=== PATIENT | male | born 1985 | race Caucasian/White ===

== ENCOUNTER 2017-04-17 09:32 | Emergency (ER) | payer BC ==
[2017-04-17 09:57] VITALS: BP 125/68
--- NOTE | 2017-04-17 10:59 | UC ---
Ear Complaint HPI - HPI Summary HPI Summary: complaint of left ear pain that started this morning headache that starts in his ear ad n radiates into his entire head throbbing aching pain tried acetaminophen without relief nasal congestion and productive cough for over a week mild sore throat denies fever and chills - History of Current Complaint Chief Complaint: UCEar Stated Complaint: EAR PAIN Time Seen by Provider: 04/17/17 10:50 Hx Obtained From: Patient - Allergies/Home Medications Allergies/Adverse Reactions: Allergies Allergy/AdvReac Type Severity Reaction Status Date / Time Sulfa Antibiotics Allergy unk Verified 04/17/17 09:51 Home Medications: Home Medications FLUoxetine CAP* [PROzac CAP*] 40 mg PO DAILY 04/17/17 [History Confirmed ] Levetiracetam XR TAB(NF) [Keppra XR TAB(NF)] 1,500 mg PO BID 04/17/17 [History Confirmed 04/17/17] PMH/Surg Hx/FS Hx/Imm Hx Previously Healthy: Yes Endocrine History Of: Denies: Diabetes, Thyroid Disease Cardiovascular History Of: Denies: Cardiac Disorders, Hypertension Respiratory History Of: Denies: COPD, Asthma GI/ History Of: Denies: Ulcer - Surgical History Surgical History: None - Family History Known Family History: Negative: Cardiac Disease, Hypertension, Diabetes - Social History Occupation: Employed Full-time Lives: With Family Alcohol Use: None Substance Use Type: None Smoking Status (MU): Former Smoker Review of Systems Constitutional: Negative Skin: Negative Eyes: Negative ENT: Sore Throat, Ear Ache, Nasal Discharge Respiratory: Cough Cardiovascular: Negative Gastrointestinal: Negative Genitourinary: Negative Motor: Negative Neurovascular: Negative Musculoskeletal: Negative Neurological: Headache Psychological: Negative All Other Systems Reviewed And Are Negative: Yes Physical Exam Triage Information Reviewed: Yes Appearance: Well-Nourished, Pain Distress Vital Signs: Initial Vital Signs Temp 98 F 04/17/17 09:54 Pulse 64 04/17/17 09:54 Resp 18 04/17/17 09:54 BP 125/68 04/17/17 09:54 Pulse Ox 99 04/17/17 09:54 Vital Signs Reviewed: Yes Eyes: Positive: Conjunctiva Clear ENT: Positive: Pharyngeal erythema, Nasal congestion, Nasal drainage, TM bulging , TM red, Tonsillar swelling, Tonsillar exudate Neck: Positive: No Lymphadenopathy Respiratory: Positive: Lungs clear, Normal breath sounds, No respiratory distress Cardiovascular: Positive: RRR, No Murmur, Pulses Normal Abdomen Description: Positive: Nontender, Soft Bowel Sounds: Positive: Present Musculoskeletal: Positive: No Edema Neurological: Positive: Alert Psychological Exam: Normal Skin Exam: Normal Ear Complaint Course/Dx - Differential Dx/Diagnosis Differential Diagnosis/HQI/PQRI: Otitis Media, URI, Other - sinusitis Provider Diagnoses: left otitis media, sinusitis Discharge - Discharge Plan Condition: Stable Disposition: HOME Prescriptions: Amoxicillin/Clavulanate TAB* [Augmentin TAB 875*] 875 mg PO BID #20 tab Ibuprofen TAB* [Motrin TAB* 800 MG] 800 mg PO Q8H #30 tab Patient Education Materials: Sinusitis (ED), Otitis Media (ED) Forms: *Work Release Referrals: Pedro Luis Chiang MD [Primary Care Provider] - Additional Instructions: Please start antibiotic as directed Increase fluids and rest Take acetaminophen or ibuprofen for fever or pain Please review your discharge instructions. If your symptoms do not improve please call your primary care provider or return to urgent care. Your blood pressure is pre-hypertensive reading. Please contact your primary care provider within 1 day -4 weeks for further evaluation
[2017-04-17] MEDS ORDERED: HYDROcodone/ACETAMIN 5-325 MG* 1 TAB PO ONE (11:03)
== END 2017-04-17 11:12 | disposition home or self-care (01) ==
LOC: UCEAST 09:32
DX: H66.92 Otitis media, unspecified, left ear (principal); J32.9 Chronic sinusitis, unspecified; Z88.2 Allergy status to sulfonamides; Z87.891 Personal history of nicotine dependence
CPT/HCPCS: 99212; G0463

== ENCOUNTER 2018-06-29 10:40 | Emergency (ER) | payer BC ==
--- OUTSIDE RECORDS SUMMARY | 2018-06-29 10:45 | XMS REPORT ---
:1985 External Reference #:[id number] Author Organization [id number] Address [address] [place] [address] Phone [phone] Care Team Providers Name Role Phone Pedro Luis Chiang MD Primary Care Physician Unavailable Payers Type Date Identification Numbers Payment Provider Subscriber Commercial Effective: Policy Number: BS Facets Nato Godoy 2016 [id number] PayID: [id number] [address] [address] [place]IG[place] thompson [address] Medigap Part B Effective: 2015 Policy Number: [employer] Facets Nato Godoy [id number] Expires: 2016 PayID: [id number] [address] [address] JIGNA Jones [address] Medigap Part B Expires: 2014 Policy Number: BS Facets Nato Godoy [id number] PayID: [id number] [address] [address] [place] [address] Medigap Part B Expires: 2013 Policy Number: [employer] Nato Godoy [id number] Group Number: [id number] [address] PayID: [id number] KONRAD Alvarez [id number] Problems Date Description Provider Status Onset: 08/25/2009 Epilepsy, not refractory Pedro Luis Chiang, Active MRita,FACP Onset: 06/10/2010 Severe recurrent major Pedro Luis Chiang, 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.Tonja,FACP features Onset: 06/10/2010 Kidney stone Jay Finley M.D.,FACP Onset: 04/20/2017 Ex-smoker Pedro Luis Chiang Active Mary Kate,FACP Onset: 06/10/2010 Syncope and collapse Cm Finley M.D.,FACP Inactive: 02/21/2014 Onset: 02/21/2014 Generalized-onset seizures Pedro Luis Chiang M.D.,FACP Inactive Inactive: 02/24/2015 Onset: 02/21/2014 Generalized convulsive Pedro Luis Chiang M.D.,FACP Inactive epilepsy Inactive: 02/24/2015 Onset: 01/07/2008 Tobacco user Pedro Luis Chiang M.D.,FACP Inactive Inactive: 04/20/2017 Family History Date Family Member(s) Problem(s) Comments Father Diabetes, Insulin Dependent type 2 Siblings 1 Maternal Grandfather Alcoholism Maternal Grandfather Alzheimer's Disease Maternal Grandmother Cancer cholangiocarcinoma Social History Type Date Description Comments Marital Status Single Lives With Mother And Father Occupation Currently Working childcare Work Status Work W/Restrictions will start once license reinstated. Cigarette Use Former Cigarette Smoker ETOH Use 01/23/2018 Denies alcohol use Recreational Drug Use Denies Drug Use Smoking Patient is a former smoker Quit Dec 2014 Exercise Type/Frequency Exercises sporadically Allergies, Adverse Reactions, Alerts Date Description Reaction Status Severity Comments 01/07/2008 Sulfa active Medications Medication Date Status Form Strength Qnty SIG Indications Ordering Provider Azithromycin 06/22 Active Tablets 500mg 2tabs Take 2 R30.0 Fabienne tablets by Cotton, mouth M.D. once. Cefixime 06/22 Active Suspension 200mg/5ML 50ml Take 10 mL R30.0 Rec by mouth Cotton, once. M.D. Prednisone 01/23 Active Tablets 20mg 8tabs 2 tab by J20.9 mouth 4 D. Mariia, days M.D.,FACYenifer Fluoxetine HCL 01/08 Active Capsules 40mg 30cap 1 tab F33.2 s daily Tonja Chiang M.D.,FACP Keppra XR 12/24 Active Tablets ER 500mg 540ta 3 tabs by G40.409 24HR bs mouth Tonja Chiang, twice a M.D.,FACP day Vitamin D Active Capsules 400Unit 1 by mouth Unknown (Cholecalciferol / every day ) fall/winte r Mucinex Active Tablets ER 600mg twice a Unknown /0000 12HR day as needed Vitamin C Active Capsules 500mg 1 by mouth Unknown every day Dicyclomine HCL Active Capsules 10mg 2-3 times Unknown /0000 a day Nifedipine ER Active Tablets ER 30mg 1 by mouth Unknown 24HR every day Breo Ellipta 01/23 Hx Aerosol 100-25mcg 90uni inhale 1 /Inh ts puff by Tonja Chiang, - mouth M.D.,FACP 06/22 Pantoprazole 01/[address] 40mg 30tab 1 in the s morning Pachikara, - empty M.D. 01/23 Vitamin 01/15 Hx Tablets ER 500mg 60tab 1 tab by s mouth once Pachikara, - day M.D. 01/23 Prednisone 01/15 Hx Tablets 20mg 10tab 2 tab by J20.9 s mouth 5 Pachikara, - days M.D. 01/23 Lamotrigine 09/29 Hx Tablets 25mg 120ta ( Not G40.409 bs Taking Cowdery, - )take 1 by M.D. 01/23 mouth at bedtime x 2 weeks, then 2 by mouth at bedtime x 2 weeks, then 4 by mouth at bedtime. Ciprodex 04/20 Hx Suspension 0.3-0.1% 7.500 instill 4 ml drops into Tonja Chiang, - left ear 2 M.D.,FACP 09/28 times day for 7 days Cyclobenzaprine 07/19 Hx Tablets 5mg 30tab take 1 G44.201 [place]onte HCL s tablet by PROSPER Garcia - mouth up 09/28 to three times a day as needed for tension Leyva Tylenol Extra 07/19 Hx Tablets 500mg 45tab 2 tablets G44.201 [place] Strength /2015 s by mouth PROSPER Garcia - every 6 09/28 hours up to three time a day as needed for Leyva Amoxicillin 10/13 Hx Tablets 500mg 14tab 1 tab by J02.9 s mouth Padmaja [employer]ER - twice a 02/01 day 7 days Cheratussin ac 10/13 Hx Solution 100-10mg/ 180ml 5-10 J06.9 5ML milliliter PROSPER Giang - s by mouth 02/01 four times a day as needed Clarithromycin 01/05 Hx Tablets 500mg 14tab 1 by mouth 466.0 s twice a Tonja Chaing, - day for 7 M.D.,[facility] Ventolin HFA 01/05 Hx Aerosol 108(90Bas 1unit 2 puffs by 466.0 e) s mouth four DMian Chiang, - mcg/Act times a MMianDMian,[facility] 02/01 day needed Amoxicillin 02/15 Hx Capsules 500mg 30cap 1 tid for Jaspal . s 10 days Tim Puente M.D. 02/21 Keppra 08/26 Hx Tablets 500mg 1 tablet po qam and Tonja Chiang, - 2 tablets Christie.DMian,[facility] 09/04 po qpm /2008 Zyprexa 08/25 Hx Tablets 5mg 30tab 1 po qhs 296.33 s samples Tim Victoria M.D.,[facility] 02/21 Indomethacin 02/17 Hx Capsules 25mg 20cap po bid for 592.0 s 2 days Tonja Chiang, - then prn Mary Kate,[facility] 02/21 Lamictal 10/17 Hx Tablets 25mg 30tab 1 PO qPM Tim Urias M.D.,[facility] 11/06 Florinef 10/14 Hx Tablets 0.1mg 60tab po bid 345.80 Tim Urias M.D.,[facility] 08/25 Fluoxetine HCL 01/07 Hx Capsules 40mg 90cap 1 by mouth s every day PROSPER Giang - 01/08 Amoxicillin 01/07 Hx Capsules 500mg 40cap 2 bid for 461.9 s 10 days Tim Victoria M.D.,FACP 06/23 Keppra Hx Tablets 500mg 2 tabs po Pedro Luis bid Tim Victoria M.D.,FACP 08/26 Keppra XR Hx Tablets ER 750mg 2 po bid 24HR - 12/24 Multivitamins Hx Tablets 90tab 1 po qd Unknown / s - 07/23 Klonopin Hx Tablets 0.5mg 180ta 1 tab po Tamiko /0000 bs bid prn Cowderlaly, - seizure Mary Kate 02/21 (Code: C) Propranolol HCL Hx Tablets 10mg 1 by mouth Unknown twice - every day 07/19 Buspirone HCL Hx Tablets 5mg 1 by mouth F33.2 twice a - day 09/28 Ventolin HFA Hx Aerosol 108(90Bas 8gm 2 puffs 4 Obed /0000 e) times Pachikara, - mcg/Act daily/use M.D. 06/22 Expectorant Hx as needed / - 01/23 Medications Administered in Office Medication Date Status Form Strength Qnty SIG Indications Ordering Provider PPD Administered Injection Demarco Giang, 5 F[employer]ITURE [employer] PPD Administered Injection Pedro Luis Evangelista 4 Mary Kate Chiang,FACP PPD Administered Injection Nurse Visit 2 [place] PPD Administered Injection Obed 0 Mary Kate Toscano PPD Administered Injection Pedro Luis Evangelista 9 Mary Kate Chiang,FAC Immunizations CPT Code Status Date Vaccine Lot # [id number] Given 11/20/2009 Tetanus And Diptheria (Td) For Adult Use Preservative Free Vital Signs Date Vital Result Comment 06/22/2018 Weight 134.75 lb Heart Rate 63 /min BP Systolic 113 mmHg BP Diastolic 70 mmHg Body Temperature 96.0 F O2 % BldC Oximetry 97 % 01/23/2018 Weight 148.00 lb Heart Rate 74 /min BP Systolic Sitting 100 mmHg BP Diastolic Sitting 60 mmHg Body Temperature 96.5 F O2 % BldC Oximetry 97 % 01/15/2018 Height 67 inches 5'7" Weight 143.00 lb Heart Rate 75 /min BP Systolic 98 mmHg BP Diastolic 60 mmHg Body Temperature 98.0 F O2 % BldC Oximetry 97 % BMI (Body Mass Index) 22.4 kg/m2 09/29/2017 Height 67 inches 5'7" Weight 143.00 lb Heart Rate 88 /min BP Systolic Sitting 126 mmHg BP Diastolic Sitting 60 mmHg Respiratory Rate 16 /min BMI (Body Mass Index) 22.4 kg/m2 04/20/2017 Weight 144.12 lb Heart Rate 54 /min BP Systolic Sitting 116 mmHg BP Diastolic Sitting 74 mmHg Body Temperature 96.7 F O2 % BldC Oximetry 98 % 07/19/2016 Height 66.5 inches 5'6.50" Weight 141.00 lb Heart Rate 58 /min BP Systolic Sitting 116 mmHg BP Diastolic Sitting 70 mmHg O2 % BldC Oximetry 97 % BMI (Body Mass Index) 22.4 kg/m2 02/03/2016 Height 67 inches 5'7" Weight 146.00 lb Heart Rate 56 /min BP Systolic Sitting 126 mmHg BP Diastolic Sitting 80 mmHg Respiratory Rate 16 /min BMI (Body Mass Index) 22.9 kg/m2 10/13/2015 Weight 148.00 lb Heart Rate 60 /min BP Systolic Sitting 118 mmHg BP Diastolic Sitting 76 mmHg Body Temperature 98.7 F O2 % BldC Oximetry 96 % 08/05/2015 Height 67 inches 5'7" Heart Rate 56 /min BP Systolic Sitting 118 mmHg BP Diastolic Sitting 68 mmHg Respiratory Rate 16 /min 07/23/2015 Height 67 inches 5'7" Weight 143.50 lb Heart Rate 54 /min BP Systolic Sitting 122 mmHg BP Diastolic Sitting 70 mmHg Body Temperature 97.0 F O2 % BldC Oximetry 98 % BMI (Body Mass Index) 22.5 kg/m2 05/14/2015 Height 67 inches 5'7" Weight 138.25 lb Heart Rate 55 /min BP Systolic Sitting 112 mmHg BP Diastolic Sitting 64 mmHg O2 % BldC Oximetry 98 % BMI (Body Mass Index) 21.7 kg/m2 02/02/2015 Height 67.25 inches 5'7.25" Weight 139.00 lb Heart Rate 56 /min BP Systolic Sitting 126 mmHg BP Diastolic Sitting 74 mmHg Respiratory Rate 16 /min BMI (Body Mass Index) 21.6 kg/m2 01/05/2015 Height 67.25 inches 5'7.25" Weight 141.50 lb Heart Rate 64 /min BP Systolic Sitting 116 mmHg BP Diastolic Sitting 68 mmHg Body Temperature 97.6 F O2 % BldC Oximetry 98 % BMI (Body Mass Index) 22.0 kg/m2 02/21/2014 Height 67.25 inches 5'7.25" Weight 135.75 lb Heart Rate 64 /min BP Systolic Sitting 104 mmHg BP Diastolic Sitting 58 mmHg Body Temperature 97.4 F BMI (Body Mass Index) 21.1 kg/m2 01/15/2014 Heart Rate 68 /min BP Systolic Sitting 130 mmHg BP Diastolic Sitting 70 mmHg Respiratory Rate 16 /min 06/07/2013 Height 67 inches 5'7" Weight 150.00 lb Heart Rate 56 /min BP Systolic Sitting 110 mmHg BP Diastolic Sitting 62 mmHg Respiratory Rate 8 /min BMI (Body Mass Index) 23.5 kg/m2 04/24/2013 Heart Rate 72 /min BP Systolic Sitting 112 mmHg BP Diastolic Sitting 60 mmHg Respiratory Rate 12 /min 03/06/2013 Heart Rate 66 /min BP Systolic Sitting 116 mmHg BP Diastolic Sitting 64 mmHg Respiratory Rate 14 /min 02/15/2011 Weight 165.00 lb Heart Rate 60 /min BP Systolic Sitting 122 mmHg BP Diastolic Sitting 72 mmHg Body Temperature 96.8 F tympanic 08/18/2010 Weight 158.00 lb Heart Rate 68 /min BP Systolic Sitting 122 mmHg BP Diastolic Sitting 80 mmHg 06/10/2010 Weight 158.00 lb Heart Rate 70 /min BP Systolic Sitting 110 mmHg BP Diastolic Sitting 70 mmHg 09/08/2009 Weight 146.00 lb Heart Rate 82 /min BP Systolic Sitting 122 mmHg BP Diastolic Sitting 72 mmHg 08/25/2009 Weight 137.00 lb With winter coat on Heart Rate 62 /min BP Systolic Sitting 104 mmHg BP Diastolic Sitting 54 mmHg 02/17/2009 Weight 138.00 lb Heart Rate 60 /min BP Systolic Sitting 124 mmHg BP Diastolic Sitting 60 mmHg 11/06/2008 Height 67 inches 5'7" Weight 130.00 lb Heart Rate 60 /min BP Systolic Sitting 110 mmHg BP Diastolic Sitting 58 mmHg BMI (Body Mass Index) 20.4 kg/m2 10/14/2008 Height 67 inches 5'7" Weight 130.00 lb Heart Rate 60 /min BP Systolic Sitting 116 mmHg BP Diastolic Sitting 60 mmHg BMI (Body Mass Index) 20.4 kg/m2 09/09/2008 Height 67 inches 5'7" Weight 130.00 lb Heart Rate 62 /min BP Systolic Sitting 116 mmHg BP Diastolic Sitting 60 mmHg BMI (Body Mass Index) 20.4 kg/m2 06/23/2008 Height 67 inches 5'7" Weight 134.00 lb Heart Rate 60 /min BP Systolic Sitting 118 mmHg BP Diastolic Sitting 56 mmHg BMI (Body Mass Index) 21.0 kg/m2 01/07/2008 Height 66 inches 5'6" Weight 136.00 lb Heart Rate 80 /min BP Systolic Sitting 92 mmHg BP Diastolic Sitting 60 mmHg Respiratory Rate 20 /min Body Temperature 98.2 F BMI (Body Mass Index) 21.9 kg/m2 Results Test Date Test Result H/L Range Note Ua Routine 06/22/2018 Ua Specific [place] 1.015 Ua PH 6 Ua Color yellow Ua Appera clear Ua WBC trace Ua Protein trace Ua Glucose neg Ua Ketones neg Ua Bilirubin neg Ua Urobilinogen neg Ua Nitrite neg Ua Occult Blood trace CBC Auto Diff 07/30/2016 White Blood Count 4.9 10^3/uL 3.5-10.8 Red Blood Count 4.88 10^6/uL 4.0-5.4 Hemoglobin 14.8 g/dL 14.0-18.0 Hematocrit 44 % 42-52 Mean Corpuscular Volume 89 fL 80-94 Mean Corpuscular Hemoglobin 30 pg 27-31 Mean Corpuscular HGB Conc 34 g/dL 31-36 Red Cell Distribution Width 13 % 10.5-15 Platelet Count 202 10^3/uL 150-450 Mean Platelet Volume 8 um3 7.4-10.4 Abs Neutrophils 3.6 10^3/uL 1.5-7.7 Abs Lymphocytes 0.6 10^3/uL Low 1.0-4.8 Abs Monocytes 0.5 10^3/uL 0-0.8 Abs Eosinophils 0.1 10^3/uL 0-0.6 Abs Basophils 0 10^3/uL 0-0.2 Abs Nucleated RBC 0 10^3/uL Granulocyte % 74.2 % 38-83 Lymphocyte % 12.7 % Low 25-47 Monocyte % 10.3 % High 1-9 Eosinophil % 2.3 % 0-6 Basophil % 0.5 % 0-2 Nucleated Red Blood Cells % 0 Basic Metabolic Panel 07/30/2016 Sodium 137 mmol/L 133-145 Potassium 4.3 mmol/L 3.5-5.0 Chloride 102 mmol/L 101-111 Co2 Carbon Dioxide 31 mmol/L 22-32 Anion Gap 4 mmol/L 2-11 Glucose 88 mg/dL 70-100 Blood Urea Nitrogen 14 mg/dL 6-24 Creatinine 1.00 mg/dL 0.67-1.17 BUN/Creatinine Ratio 14.0 8-20 Calcium 9.8 mg/dL 8.6-10.3 Egfr Non- 89.0 >60 Egfr 114.4 >60 1 Laboratory test finding 07/30/2016 TSH (Thyroid Stim Horm) 1.18 mcIU/mL 0.34-5.60 2 Lipid Profile 07/30/2016 Triglycerides 100 mg/dL 3 (Trig/Chol/HDL) Cholesterol 179 mg/dL 4 HDL Cholesterol 55.9 mg/dL 5 LDL Cholesterol 103 mg/dL 6 Laboratory test finding 04/09/2016 Levetiracetam (Keppra) 30.3 g/mL 7 Laboratory test finding 10/13/2015 Rapid Strep A negative Laboratory test finding 07/24/2015 Lyme Disease Serology Negative Negative 8 Basic Metabolic Panel 07/24/2015 Sodium 138 mmol/L 133-145 Potassium 4.1 mmol/L 3.5-5.0 Chloride 102 mmol/L 101-111 Co2 Carbon Dioxide 28 mmol/L 22-32 Anion Gap 8 mmol/L 2-11 Glucose 95 mg/dL 70-100 Blood Urea Nitrogen 12 mg/dL 6-24 Creatinine 0.92 mg/dL 0.67-1.17 BUN/Creatinine Ratio 13.0 8-20 Calcium 9.1 mg/dL 8.6-10.3 Egfr Non- 98.7 >60 Egfr 126.9 >60 9 Lipid Profile (Trig/Chol/HDL) 07/24/2015 Triglycerides 56 mg/dL 10 Cholesterol 192 mg/dL 11 HDL Cholesterol 59.1 mg/dL 12 LDL Cholesterol 122 mg/dL 13 Laboratory test finding 02/22/2013 Levetiracetam 34.2 g/mL 14 Urinalysis 08/21/2010 Ua Color YELLOW Yellow Appearance-Urine CLEAR Clear Specific [place]-Ur 1.029 1.010-1.030 Esterase-Urine NEGATIVE Negative Nitrite NEGATIVE Negative [id number] NEGATIVE Negative Protein-Urine NEGATIVE Negative PH-Urine 6.0 5-9 Blood-Urine NEGATIVE Negative Ketones-Urine NEGATIVE Negative Bilirubin-Ur NEGATIVE Negative Glucose-Urine NEGATIVE Negative CBC With Manual Diff 08/21/2010 White Blood Count 7.0 CUMM 4.8-10.8 Red Cell Count 4.58 CUMM Low 4.6-6.2 Hemoglobin 15.1 g/dL 14.0-18.0 Hematocrit 43 % 42-52 Mean Corpuscular Volume 94 um3 80-94 Mean Corpuscular Hemoglob 33 pg High 27-31 Mean Corpuscular HGB Cone 35 g/dL 32-36 Redcell Distribution WDTH 12 % 10.5-15 Platelet Count 185 CUMM 150-450 Mean Platelet Volume 7.1 um3 Low 7.4-10.4 Polysegmented Neutrophil 50 % 38-83 Lymphocyte 41 % 25-47 Monocyte 5 % 0-13 Eosinophil 2 % 0-6 Atypical Lymph 2 % 0-6 Absolute Neutrophil Count 3.5 RBC Morphology NORMAL Comp Metabolic Panel 08/21/2010 Sodium 139 mmol/L 135-145 Potassium 3.5 mmol/L 3.5-5.0 Chloride 103 mmol/L 101-111 Co2 (Carbon Dioxide) 29.0 mmol/L 22-32 Anion Gap 7.0 mmol/L 2-11 15 Glucose 104 mg/dL High 70-100 16 BUN 15 mg/dL 6-24 Creatinine 0.90 mg/dL 0.50-1.40 One Over Creatinine 1.10 BUN/Creatinine Ratio 16.7 8-20 Calcium 9.5 mg/dL 8.1-9.9 Total Protein 6.5 GM/DL 6.2-8.1 Albumin 4.6 GM/DL 3.6-5.4 Globulin 1.9 GM/DL Low 2-4 Albumin/Globulin Ratio 2.4 1-3 Bilirubin Total 0.8 mg/dL 0.4-1.5 17 Alkaline Phosphatase 59 U/L 39-117 Alt (SGPT) 14 U/L Low 17-63 Ast (Sgot) 16 U/L 12-42 eGFR Non- 111.1 > 60 eGFR 134.5 > 60 18 Laboratory test finding 08/21/2010 Amylase 45 U/L 30-125 Lipase 20 U/L Low 22-51 Stool Cult & Sensitivity 06/12/2010 O P: Giardia/Crypto Screen BROWN 19 Fecal Lactoferrin (Stool WBC) NF 20 Laboratory test 06/12/2010 O P: Giardia/Crypto Screen NEGATIVE BY IMMU 21 finding <SEE NOTE> Stool Cult Sensitivity NF 22 Shiga Toxin 1 And 2 (Ehec) NEGATIVE BY IMMU <SEE NOTE> 23 Laboratory test finding 10/19/2009 Levetiracetam 28 ug/mL () 24 Laboratory test finding 09/08/2009 Levetiracetam 33 ug/mL () 25 Laboratory test finding 09/01/2009 Levetiracetam 39 ug/mL () 26 CMP Panel Stat 08/31/2009 Sodium 142 mmol/L 135-145 Potassium 4.4 mmol/L 3.5-5.0 Chloride 102 mmol/L 101-111 Co2 (Carbon Dioxide) 29.0 mmol/L 22-32 Anion Gap 11.0 mmol/L 2-11 27 Glucose 94 mg/dL 70-100 28 BUN 14 mg/dL 6-24 Creatinine 0.90 mg/dL 0.50-1.40 One Over Creatinine 1.10 BUN/Creatinine Ratio 15.6 8-20 Calcium 9.2 mg/dL 8.1-9.9 29 Total Protein 5.9 GM/DL Low 6.2-8.1 Albumin 4.1 GM/DL 3.6-5.4 Globulin 1.8 GM/DL Low 2-4 Albumin/Globulin Ratio 2.3 1-3 Bilirubin Total 0.5 mg/dL 0.4-1.5 30 Alkaline Phosphatase 84 U/L 39-117 Alt (SGPT) 30 U/L 17-63 Ast (Sgot) 33 U/L 12-42 eGFR Non- 112.2 > 60 eGFR 135.7 > 60 31 CBC With Electronic Diff Stat 08/31/2009 White Blood Count 8.8 CUMM 4.8- 10.8 Red Cell Count 4.43 CUMM Low 4.6-6.2 Hemoglobin 14.3 g/dL 14.0-18.0 Hematocrit 42 % 42-52 Mean Corpuscular Volume 94 um3 80-94 Mean Corpuscular Hemoglob 32 pg High 27-31 Mean Corpuscular HGB Cone 34 g/dL 32-36 Redcell Distribution WDTH 12 % 10.5-15 Platelet Count 161 CUMM 150-450 Mean Platelet Volume 7.9 um3 7.4-10.4 Gran % 73.9 % 38-83 Lymph % 18.7 % Low 25-47 Mononuclear % 6.4 % 1-9 Eosinophil % 0.5 % 0-6 Basophil % 0.5 % 0-2 Abs Lymphs 1.6 1.0-4.8 Abs Mononuclear 0.6 0-0.8 Absolute Neutrophil Count 6.6 1.5-7.7 Abs Eosinophils 0 0-0.6 Abs Basophils 0 0-0.2 Laboratory test finding 08/17/2009 Troponin-I (TnI) 0.04 NG/ML 32 CBC With Manual Diff Stat 08/17/2009 White Blood Count 5.6 CUMM 4.8-10.8 Red Cell Count 4.79 CUMM 4.6-6.2 Hemoglobin 15.4 g/dL 14.0-18.0 Hematocrit 45 % 42-52 Mean Corpuscular Volume 93 um3 80-94 Mean Corpuscular Hemoglob 32 pg High 27-31 Mean Corpuscular HGB Cone 34 g/dL 32-36 Redcell Distribution WDTH 13 % 10.5-15 Platelet Count 200 CUMM 150-450 Mean Platelet Volume 7.8 um3 7.4-10.4 Polysegmented Neutrophil 47 % 38-83 Lymphocyte 43 % 25-47 Monocyte 7 % 0-13 Atypical Lymph 3 % 0-6 Absolute Neutrophil Count 2.6 RBC Morphology NORMAL CMP Panel Stat 08/17/2009 Sodium 139 mmol/L 135-145 Potassium 4.1 mmol/L 3.5-5.0 Chloride 101 mmol/L 101-111 Co2 (Carbon Dioxide) 33.0 mmol/L High 22-32 Anion Gap 5.0 mmol/L 2-11 33 Glucose 76 mg/dL 70-100 34 BUN 10 mg/dL 6-24 Creatinine 0.90 mg/dL 0.50-1.40 One Over Creatinine 1.10 BUN/Creatinine Ratio 11.1 8-20 Calcium 9.9 mg/dL 8.1-9.9 35 Total Protein 7.1 GM/DL 6.2-8.1 Albumin 4.5 GM/DL 3.6-5.4 Globulin 2.6 GM/DL 2-4 Albumin/Globulin Ratio 1.7 1-3 Bilirubin Total 1.2 mg/dL 0.4-1.5 36 Alkaline Phosphatase 112 U/L 39-117 Alt (SGPT) 13 U/L Low 17-63 Ast (Sgot) 16 U/L 12-42 eGFR Non- 112.2 > 60 eGFR 135.7 > 60 37 Urine Culture & Sensitivi 02/17/2009 Urine Culture Sensitivi NG 38 Basic Metabolic Panel 09/06/2008 Sodium 136 mmol/L 135-145 Stat Potassium 4.0 mmol/L 3.5-5.0 Chloride 102 mmol/L 101-111 Co2 (Carbon Dioxide) 30.0 mmol/L 22-32 Anion Gap 4.0 mmol/L 2-11 39 Glucose 82 mg/dL 70-100 40 BUN 11 mg/dL 6-24 Creatinine 1.0 mg/dL 0.5-1.4 One Over Creatinine 1.00 BUN/Creatinine Ratio 11.0 8-20 Calcium 9.8 mg/dL 8.1-9.9 41 CBC With Electronic Diff Stat 09/06/2008 White Blood Count 5.7 CUMM 4.8- 10.8 Red Cell Count 4.96 CUMM 4.6-6.2 Hemoglobin 15.9 g/dL 14.0-18.0 Hematocrit 45 % 42-52 Mean Corpuscular Volume 91 um3 80-94 Mean Corpuscular Hemoglob 32 pg High 27-31 Mean Corpuscular HGB Cone 35 g/dL 32-36 Redcell Distribution WDTH 13 % 10.5-15 Platelet Count 227 CUMM 150-450 Mean Platelet Volume 7.5 um3 7.4-10.4 Gran % 72.4 % 38-83 Lymph % 20.1 % 20-45 Mononuclear % 6.6 % 1-9 Eosinophil % 0.6 % 0-6 Basophil % 0.3 % 0-2 Abs Lymphs 1.1 1.0-4.8 Abs Mononuclear 0.4 0-0.8 Absolute Neutrophil Count 4.1 1.5-7.7 Abs Eosinophils 0 0-0.6 Abs Basophils 0 0-0.2 1 Because ethnic data is not always readily available, this report includes an eGFR for both -Americans and non- Americans. The National Kidney Disease Education Program (NKDEP) does not endorse the use of the MDRD equation for patients that are not between the ages of 18 and 70, are , have extremes of body size, muscle mass, or nutritional status, or are non- or non-. According to the National Kidney Foundation, irrespective of diagnosis, the stage of the disease is based on the level of kidney function: Stage Description GFR(mL/min/1.73 m(2)) 1 Kidney damage with normal or decreased GFR 90 2 Kidney damage with mild decrease in GFR 60-89 3 Moderate decrease in GFR 30-59 4 Severe decrease in GFR 15-29 5 Kidney failure <15 (or dialysis) 2 FASTING 10 HOUR 3 Desirable <150 Borderline high 150-199 High 200-499 Very High >500 4 Desirable <200 Borderline high 200-239 High >239 5 Low <40 Desirable: 40-60 High: >60 6 Desirable: <100 mg/dL Near Optimal: 100-129 mg/dL Borderline High: 130-159 mg/dL High: 160-189 mg/dL Very High: >189 mg/dL 7 REFERENCE VALUE 12.0 - 46.0 Test Performed by: [place] [address] Medical Detail Representative: Kwadwo Chan II, M.D., Ph.D. 8 Serologic response to B. burgdorferi infection is not detected, but cannot rule out early infection during which low or undetectable antibody levels to B. burgdorferi may be present. If clinically indicated, a new serum specimen should be submitted in 7-14 days. Test Performed by: [place] [address] Medical Detail Representative: Kwadwo Chan II, M.D., Ph.D. 9 Because ethnic data is not always readily available, this report includes an eGFR for both -Americans and non- Americans. The National Kidney Disease Education Program (NKDEP) does not endorse the use of the MDRD equation for patients that are not between the ages of 18 and 70, are , have extremes of body size, muscle mass, or nutritional status, or are non- or non-. According to the National Kidney Foundation, irrespective of diagnosis, the stage of the disease is based on the level of kidney function: Stage Description GFR(mL/min/1.73 m(2)) 1 Kidney damage with normal or decreased GFR 90 2 Kidney damage with mild decrease in GFR 60-89 3 Moderate decrease in GFR 30-59 4 Severe decrease in GFR 15-29 5 Kidney failure <15 (or dialysis) 10 Desirable <150 Borderline high 150-199 High 200-499 Very High >500 11 Desirable <200 Borderline high 200-239 High >239 12 Low <40 Desirable: 40-60 High: >60 13 Desirable: <100 mg/dL Near Optimal: 100-129 mg/dL Borderline High: 130-159 mg/dL High: 160-189 mg/dL Very High: >189 mg/dL 14 -- REFERENCE VALUE -- 12.0 - 46.0 Test Performed by: [facility] - [address] [address] Medical Detail Representative: Mick Daly III, M.D. 15 Anion gap measurement may be of limited value in the presence of any alkalosis, especially in a combined acid base disorder. . 16 Note change in reference range as of 07/10/08. The change was based on recommendations from the [place] [employer]. 17 A metabolite of Naproxen, O-desmethylnaproxen, has been shown to interfere with the Jendrassik-Tia method for measuring total bilirubin. Samples from patients who have taken Naproxen have shown spurious elevation in total bilirubin levels. 18 Because ethnic data is not always readily available, this report includes an eGFR for both -Americans and non- Americans. The National Kidney Disease Education Program (NKDEP) does not endorse the use of the MDRD equation for patients that are not between the ages of 18 and 70, are , have extremes of body size, muscle mass, or nutritional status, or are non- or non-. According to the National Kidney Foundation, irrespective of diagnosis, the stage of the disease is based on the level of kidney function: Stage Description GFR(mL/min/1.73 m(2)) 1 Kidney damage with normal or decreased GFR 90 2 Kidney damage with mild decrease in GFR 60-89 3 Moderate decrease in GFR 30-59 4 Severe decrease in GFR 15-29 5 Kidney failure <15 (or dialysis) 19 FIRM FORMED 20 NO GROWTH OF CAMPYLOBACTER AFTER 48 HOURS 21 NEGATIVE BY IMMUNOASSAY BROWN FIRM FORMED 22 NEGATIVE FOR THE ENTERIC PATHOGENS - SALMONELLA, SHIGELLA, AEROMONAS, PLESIOMONAS AND YERSINIA. VIBRIO AND E. COLI 0157 NOT ROUTINELY TESTED FOR IN A STOOL CULTURE. PLEASE SUBMIT SAMPLE WITH SPECIFIC REQUEST FOR DESIRED ORGANISM(S). 23 NEGATIVE BY IMMUNOCHROMATOGRAPHIC ASSAY NEGATIVE BY IMMUNOCHROMATOGRAPHIC ASSAY 24 -- REFERENCE VALUE -- 10-63 (Peak) 3-34 (Trough) Test Performed by: [facility] Dpt of Lab Med and Pathology [address] [place] [address] Medical Detail Representative: Mick Daly III, M.D. 25 -- REFERENCE VALUE -- 10-63 (Peak) 3-34 (Trough) Test Performed by: [facility] Dpt of Lab Med and Pathology [address] [place] [address] Medical Detail Representative: Mick Daly III, M.D. 26 -- REFERENCE VALUE -- 10-63 (Peak) 3-34 (Trough) Test Performed by: [facility] Dpt of Lab Med and Pathology [address] [place] [address] Medical Detail Representative: Mick Daly III, M.D. 27 Anion gap measurement may be of limited value in the presence of any alkalosis, especially in a combined acid base disorder. . 28 Note change in reference range as of 07/10/08. The change was based on recommendations from the [place] [employer]. 29 Please note change in reference range effective 08 . 30 A metabolite of Naproxen, O-desmethylnaproxen, has been shown to interfere with the [place] method for measuring total bilirubin. Samples from patients who have taken Naproxen have shown spurious elevation in total bilirubin levels. 31 Because ethnic data is not always readily available, this report includes an eGFR for both -Americans and non- Americans. The National Kidney Disease Education Program (NKDEP) does not endorse the use of the MDRD equation for patients that are not between the ages of 18 and 70, are , have extremes of body size, muscle mass, or nutritional status, or are non- or non-. According to the National Kidney Foundation, irrespective of diagnosis, the stage of the disease is based on the level of kidney function: Stage Description GFR(mL/min/1.73 m(2)) 1 Kidney damage with normal or decreased GFR 90 2 Kidney damage with mild decrease in GFR 60-89 3 Moderate decrease in GFR 30-59 4 Severe decrease in GFR 15-29 5 Kidney failure <15 (or dialysis) 32 New Reference Range and Interpretation effective 08/23/2002 TnI (ng/ml) INTERPRETATION Less Than 0.06 ng/mL NOT SUPPORTIVE OF DIAGNOSIS OF ME 0.06 - 0.50 ng/ml INDETERMINATE: SUGGEST SERIAL STUDIES IF CLINICALLY INDICATED. Greater than 0.5 ng/mL CONSISTENT WITH DIAGNOSIS OF ME . 33 Anion gap measurement may be of limited value in the presence of any alkalosis, especially in a combined acid base disorder. . 34 Note change in reference range as of 07/10/08. The change was based on recommendations from the [place] [employer]. 35 Please note change in reference range effective 08 . 36 A metabolite of Naproxen, O-desmethylnaproxen, has been shown to interfere with the [place] method for measuring total bilirubin. Samples from patients who have taken Naproxen have shown spurious elevation in total bilirubin levels. 37 Because ethnic data is not always readily available, this report includes an eGFR for both -Americans and non- Americans. The National Kidney Disease Education Program (NKDEP) does not endorse the use of the MDRD equation for patients that are not between the ages of 18 and 70, are , have extremes of body size, muscle mass, or nutritional status, or are non- or non-. According to the National Kidney Foundation, irrespective of diagnosis, the stage of the disease is based on the level of kidney function: Stage Description GFR(mL/min/1.73 m(2)) 1 Kidney damage with normal or decreased GFR 90 2 Kidney damage with mild decrease in GFR 60-89 3 Moderate decrease in GFR 30-59 4 Severe decrease in GFR 15-29 5 Kidney failure <15 (or dialysis) 38 FINAL: NO GROWTH DAY 2 (<1,000 CFU/mL) 39 Anion gap measurement may be of limited value in the presence of any alkalosis, especially in a combined acid base disorder. . 40 Note change in reference range as of 07/10/08. The change was based on recommendations from the [place] [employer]. 41 Please note change in reference range effective 08 . Procedures Date CPT Code Description Status 02/06/2018 30623 Plethysmography Determination Lung Volumes & Per Airway Completed Resist 02/06/2018 75490 Pulmonary Function><Bronchodil Completed 03/11/2013 54403 EEG Recording Awake & Drowsy Completed Encounters Type Date Location Provider CPT E/M Dx Office Visit 01/23/2018 10:50a [facility] Internal Medicine Pedro Luis Chiang, 21114 J40 - Rina Hartmann,FACP G40.409 Office Visit 01/15/2018 3:20p [facility] Internal Obed Toscano, 90522 J20.9 Medicine - [place] Vishnu Hartmann Office Visit 09/29/2017 1:30p [facility] Tamiko George M.D. 74579 G40.409 Services Of [facility] R53.83 Z79.899 Office Visit 04/20/2017 1:40p [facility] Internal Pedro Luis Chiang, 39708 H60.322 Medicine - [place] Vishnu Hartmann,FACP Office Visit 07/19/2016 1:40p [facility] [place] [address] G44.201 Medicine - [place] [address] Z00.00 G40.409 F33.2 Office Visit 02/03/2016 1:00p [facility] Tamiko George M.D. 04061 G40.409 Services Of [facility] Office Visit 10/13/2015 1:30p [facility] Internal Medicine Demarco Giang, PROSPER 30515 J06.9 - Rina J02.9 Office Visit 08/05/2015 1:00p [facility] [address] 345.10 Services [facility] Office Visit 07/23/2015 3:40p [facility] Internal Medicine - Jaspal Puente, 50003 088.81 Rina Hartmann V77.1 V77.91 345.10 Office Visit 05/14/2015 9:20a [facility] [place] [address] V70.0 Rina 296.33 v74.1 Office Visit 02/02/2015 11:45a [facility] [address] 345.10 Services Of [facility] Office Visit 01/05/2015 11:50a [facility] Internal Medicine - Pedro LuisGhanshyam Chiang, 60984 466.0 [place] Vishnu Hartmann,FACP 382.9 Office Visit 02/21/2014 2:40p [facility] Internal Medicine Pedro LuisGhanshyam Chiang, 89459 V70.0 - Rina Hartmann,FACP 296.33 345.10 V74.1 305.1 Office Visit 01/15/2014 1:15p [facility] Tamiko George M.D. 98828 345.10 Services Of [facility] Office Visit 07/10/2013 4:00p [facility] Tamiko George M.D. 84656 345.10 Services Of [facility] Office Visit 06/07/2013 3:15p [facility] Tamiko George M.D. 49047 345.10 Services Of [facility] Office Visit 04/24/2013 1:15p [facility] Tamiko George M.D. 44088 345.10 Services Of [facility] [employer] Office Visit 03/06/2013 3:30p [facility] Tamiko George M.D. 43749 345.10 Services Of [facility] [employer] 339.10 Office Visit 02/15/2011 11:20a DO Not Use [facility] AT Jaspal Jacquelin Puente, 94183 462 Conchis Hartmann Office Visit 08/20/2010 3:30p DO Not Use [employer] [facility] AT Nurse Visit [place] [address] [facility] Office Visit 08/18/2010 1:20p DO Not Use [facility] AT [facility], 10507 V74.1 Conchis Hartmann 345.80 296.33 592.0 305.1 V70.0 Office Visit 06/10/2010 1:40p DO Not Use [facility] AT [facility], 62352 555.9 Conchis Hartmann Office Visit 09/08/2009 2:40p DO Not Use [employer] AT Pedro LuisGhanshyam Chiang, 52145 345.80 Conchis Hartmann,FACP 296.33 V58.32 Office Visit 08/25/2009 4:00p DO Not Use [employer] [facility] AT Pedro LuisGhanshyam Chiang, 32397 296.33 Conchis Hartmann,FACP V62.84 345.80 Office Visit 02/17/2009 11:40a DO Not Use [facility], 42192 592.0 Conchis Hartmann,FACP V74.1 Office Visit 11/06/2008 11:00a DO Not Use [facility], 19576 345.80 Conchis Hartmann,FACP 780.2 Office Visit 10/14/2008 3:40p DO Not Use [facility], 19021 345.80 Conchis Hartmann,[facility] Office Visit 09/09/2008 1:00p DO Not Use [facility] AT [facility], 42092 345.80 Fordjg Hartmann 780.2 Office Visit 06/23/2008 11:40a DO Not Use [facility], 94712 846.1 [facility] Hart[facility] Office Visit 01/07/2008 11:40a DO Not Use [facility], 11071 461.9 Fordjg Hartmann,FACP 305.1 Plan of Care 06/22/2018 - Sonal Brown RPA-CR30.0 DysuriaNew Medication:Azithromycin 500 mgCefixime 200 mg/5MLFollow up:Call if no improvement in symptoms in 2-3 days.
== END 2018-06-29 11:25 | disposition left against medical advice (07) ==
LOC: UCEAST 10:40
DX: R30.9 Painful micturition, unspecified (principal); R39.15 Urgency of urination; Z53.21 Procedure and treatment not carried out due to patient leaving prior to being seen by health care provider

== ENCOUNTER 2018-06-29 11:46 | Emergency (ER) | payer BC ==
[2018-06-29 14:24] LABS: Urine Appearance Clear; Urine Blood Negative (Negative); Urine Color Straw; Urine Ketones Negative (Negative); Urine Protein Negative (Negative); Urine Specific Gravity 1.009 (1.010-1.030); Urine Urobilinogen Negative (Negative)
--- NOTE | 2018-06-29 15:14 | ED ---
GI/ HPI - HPI Summary HPI Summary: This is scribe Edson Ray documenting for attending Dr. Herrera Garcia. This patient is a 32 year old M presenting to [facility] with a chief complaint of dysuria since 2 weeks ago. He notes stinging during and after urination, and constant painful urgency. Patient endorses going to a walk-in clinic on [facility], and UA was (-). Rx dicyclomine and nifedipine for dysuria. Pt was referred to and saw PCP, did another UA and gave azithromycin and Suprax. UA (-) at PCP too. He denies fevers, chills, unprotected sex, and penile discharge. PMHx sz, depression. I, Dr. Silverman personally performed the services described in this documentation as scribed in my presence and it is both accurate and complete. - History of Current Complaint Chief Complaint: EDUrogenitalProblems Time Seen by Provider: 06/29/18 13:01 Stated Complaint: PAINFUL URINATION Hx Obtained From: Patient Onset/Duration: Started Weeks Ago, Atraumatic, Still Present Timing: Constant Severity: Moderate Current Severity: Severe Pain Intensity: 10 Additional Locations for Males: Penis Pain Characteristics: Burning Associated Signs and Symptoms: Positive: Dysuria. Negative: Discharge, Fever, Chills Additional Signs & Symptoms: Negative: Penile Discharge Aggravating Factor(s): Urination Alleviating Factor(s): Nothing - Allergy/Home Medications Allergies/Adverse Reactions: Allergies Allergy/AdvReac Type Severity Reaction Status Date / Time Sulfa (Sulfonamide Allergy Unknown Verified 06/29/18 12:52 Antibiotics) Reaction Details Home Medications: Home Medications FLUoxetine CAP* [Prozac CAP*] 40 mg PO DAILY 06/29/18 [History Confirmed ] Ibuprofen TAB* [Motrin TAB* 800 MG] 800 mg PO Q8H PRN 06/29/18 [History Confirmed 06/29/18] NIFEdipine ER TAB* [Procardia Xl TAB*] 30 mg PO DAILY 06/29/18 [History Confirmed 06/29/18] PMH/Surg Hx/FS Hx/Imm Hx Endocrine/Hematology History: Denies: Hx Diabetes, Hx Sickle Cell Disease, Hx Thyroid Disease Cardiovascular History: Denies: Hx Hypertension Respiratory History: Denies: Hx Asthma, Hx Chronic Obstructive Pulmonary Disease (COPD) GI History: Denies: Hx Ulcer History: Denies: Hx Dialysis Musculoskeletal History: Denies: Hx Osteoporosis Sensory History: Denies: Hx Legally Blind, Hx Deafness, Hx Hearing Aid Opthamlomology History: Denies: Hx Legally Blind EENT History: Denies: Hx Deafness, Hx Hearing Aid Neurological History: Reports: Hx Seizures Denies: Hx CVA Psychiatric History: Reports: Hx Depression Denies: Hx Schizophrenia - Cancer History Cancer Type, 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 Infectious Disease History: No Infectious Disease History: Denies: Hx Clostridium Difficile, Hx Hepatitis, Hx Human Immunodeficiency Virus (HIV), Hx of Known/Suspected MRSA, Hx Shingles, Hx Tuberculosis, Hx Known/ Suspected VRE, Hx Known/Suspected VRSA, History Other Infectious Disease, Traveled Outside the [place] in Last 30 Days - Family History Known Family History: Negative: Cardiac Disease, Hypertension, Diabetes - Social History Occupation: Employed Full-time Lives: With Family Alcohol Use: None Substance Use Type: Reports: None Smoking Status (MU): Former Smoker Review of Systems Negative: Fever, Chills Positive: burning, dysuria, urgency. Negative: discharge All Other Systems Reviewed And Are Negative: Yes Physical Exam - Summary Physical Exam Summary: VITAL SIGNS: Reviewed. GENERAL: Patient is a well-developed and nourished who is lying comfortable in the stretcher. Patient is not in any acute respiratory distress. HEAD AND FACE: No signs of trauma. No ecchymosis, hematomas or skull depressions. No sinus tenderness. EYES: PERRLA, EOMI x 2, No injected conjunctiva, no nystagmus. EARS: Hearing grossly intact. Ear canals and tympanic membranes are within normal limits. MOUTH: Oropharynx within normal limits. NECK: Supple, trachea is midline, no adenopathy, no JVD, no carotid bruit, no c- spine tenderness, neck with full ROM. CHEST: Symmetric, no tenderness at palpation LUNGS: Clear to auscultation bilaterally. No wheezing or crackles. CVS: Regular rate and rhythm, S1 and S2 present, no murmurs or gallops appreciated. ABDOMEN: Soft, non-tender. No signs of distention. No rebound no guarding, and no masses palpated. Bowel sounds are normal. EXTREMITIES: FROM in all major joints, no edema, no cyanosis or clubbing. NEURO: Alert and oriented x 3. No acute neurological deficits. Speech is normal and follows commands. SKIN: Dry and warm : Chaperoned by RN Selam: Circumcised penis, both testicles are descended. No masses are appreciated. Positive cremasteric reflex. Triage Information Reviewed: Yes Vital Signs On Initial Exam: Initial Vitals Temp Pulse Resp BP Pulse Ox 99 F 64 16 126/72 99 06/29/18 12:16 06/29/18 12:16 06/29/18 12:16 06/29/18 12:16 06/29/18 12:16 Vital Signs Reviewed: Yes Diagnostics - Vital Signs Vital Signs Temp Pulse Resp BP Pulse Ox 06/29/18 12:16 99 F 64 16 126/72 99 - Laboratory Lab Results: Lab Results 06/29/18 Range/Units 14:09 Urine Color Straw Urine Appearance Clear Urine pH 6.0 (5-9) Ur Specific [place] 1.009 L (1.010-1.030) Urine Protein Negative (Negative) Urine Ketones Negative (Negative) Urine Blood Negative (Negative) Urine Nitrate Negative (Negative) Urine Bilirubin Negative (Negative) Urine Urobilinogen Negative (Negative) Ur Leukocyte Esterase Negative (Negative) Urine Glucose Negative (Negative) Urine Ascorbic Acid * A (Negative) Lab Statement: Any lab studies that have been ordered have been reviewed, and results considered in the medical decision making process. Re-Evaluation - Re-Evaluation First Eval Re-Evaluation Time: 16:19 Change: Unchanged Comment: Pt comfortable, wants to go home but informed pt about being in contact with urologist before discharge. Second Eval Re-Evaluation Time: 17:40 Change: Unchanged Comment: discussed discharge, follow up with urologist. GIGU Course/Dx - Course Assessment/Plan: This patient is a 32-year-old male who presents to the emergency department with a chief complaint of having dysuria. Patient reports that he has an appointment with urology in one month however the symptoms have worsened therefore he decided to come to the ED. Urinalysis is negative for UTI , positive ascorbic acid. Patient had multiple urinalysis and GC and chlamydia and they was negative. I did send another GC and chlamydia for culture. Patient does not have any penile discharge. At this time I discussed case with Dr. Mcguire from urology and he recommends a post voidal bladder scan and it if is negative to place the patient on doxycycline for 10 days and follow-up at his office. I discussed the findings and results with the patient as well as the plan and he agrees. - Diagnoses Provider Diagnoses: Dysuria - Physician Notifications Discussed Care Of Patient With: Yonatan Mcguire Time Discussed With Above Provider: 16:50 Instructed by Provider To: Other - recommends Rx doxycycline, discharge home with follow up with dr. Mcguire. Discharge - Sign-Out/Discharge Documenting (check all that apply): Patient Departure - discharge - Discharge Plan Condition: Stable Disposition: HOME Prescriptions: DOXYcycline CAP(*) [DOXYcycline 100MG CAP(*)] 100 mg PO BID #20 cap Patient Education Materials: Dysuria (ED) Referrals: Yonatan Mcguire MD [Medical Doctor] - 3 Days Additional Instructions: Return to the emergency department for any new or worsening symptoms. Attestations User Type: Provider - I, Dr. Silverman personally performed the services described in this documentation as scribed in my presence and it is both accurate and complete.
[2018-06-29] MEDS ORDERED: DOXYcycline CAP(*) 100 MG PO ONE (17:52)
[2018-06-29 18:17] VITALS: BP 125/71
== END 2018-06-29 18:15 | disposition home or self-care (01) ==
LOC: ED 11:46
DX: R30.0 Dysuria (principal); F32.9 Major depressive disorder, single episode, unspecified; Z88.2 Allergy status to sulfonamides; Z87.891 Personal history of nicotine dependence
CPT/HCPCS: 81003; 87491; 87591; 99282; A9270-GY

== ENCOUNTER 2018-07-11 08:15 | Day surgery (SDC) | payer BC ==
--- NOTE | 2018-07-10 13:24 | HP ---
CC: Dr. Pedro Luis Chiang * ADMITTING HISTORY AND PHYSICAL: DATE OF ADMISSION: 07/11/18 ADMITTING DIAGNOSIS: Bilateral ureteral calculi. PLANNED PROCEDURE: Left ureteroscopy, possible laser and stent insertion, and possible right ureteroscopy stone removal and stent insertion. SURGEON: Dr. Mcguire HISTORY OF PRESENT ILLNESS: Nato Godoy is a 32-year-old gentleman, who has had bothersome voiding symptoms for about a month. This consists of urgency to urinate more frequently and terminal dysuria. He had multiple evaluations including at the [place] pre-[facility] and also at Dr. Chiang's office and had several urinalysis done, all of which was reported normal. I saw him the first time on 07/09/18, and his urinalysis in my office showed 3+ rbcs. My concern was that his irritative urinary symptoms may be secondary to a calculus in the distant ureter and a sonogram was obtained. This showed 2 calculi in the left distal ureter with significant amount of edema in the area of the left distal ureter and ureterovesical junction and an additional smaller calculus in the right ureter with mild edema. He has mild left hydronephrosis with increased cortical echogenicity, which is consistent with the fact that this has been going on for a month. A CT scan was done, which showed the calculi impacted and what I suspect is the ureterovesical junction bilaterally and he was given the option of trying to continue conservative management with hydration, but because the symptoms have been going on for over a month, we would like to have this taken care of and is now being brought in for bilateral ureteroscopy. PAST MEDICAL HISTORY: Significant for: 1. Irritable bowel syndrome. 2. History of seizure disorder. PAST SURGICAL HISTORY: Significant for eye surgery. MEDICATIONS: On admission: 1. Keppra 1500 mg b.i.d. 2. Prozac 40 mg a day. ALLERGIES: SULFA. FAMILY HISTORY: His father has a history of kidney stones. SMOKING HISTORY: He is a former smoker, who quit 6 years ago. REVIEW OF SYSTEMS: He is otherwise in excellent health. There is no history of diabetes mellitus or any other major systemic illness. PHYSICAL EXAMINATION VITAL SIGNS: Blood pressure is 98/60, pulse 55 per minutes, regular, temperature 96.7, oxygen saturation 94% on room air. LUNGS: Clear bilaterally. CARDIOVASCULAR: Regular rate and rhythm. S1, S2. ABDOMEN: Soft with mild bilateral flank tenderness. IMPRESSION: A 32-year-old gentleman with bilateral ureteral calculi, which going by his duration of symptoms, appear to have been in the area of the ureterovesical junction for about a month causing irritative urinary symptoms. PLAN: Plan is for left ureteroscopy, possible laser and stent insertion and possible right ureteroscopy and stone removal and stent insertion. [id number]/CPS #: [id number] MTDD
[~2018-07-11 08:15] MED LIST: Buffered Lidocaine 0.9% SYRIN* 5 ML/SYR SYRINGE INTRADERM ONE; cefTRIAXone(*) 2 GM ADDV.VIAL IVPB ONE
[2018-07-11] MEDS ORDERED: Midazolam* 1 MG/ML 5 ML VIAL (5 MG) ONE (09:22)
[2018-07-11] MEDS ORDERED: fentaNYL* 50 MCG/ML 2 ML VIAL (100 MCG VIAL) ONE ×2 (09:26→10:57)
[2018-07-11] MEDS ORDERED: Propofol* 10 MG/ML 20 ML BTL IV PUSH ONE (09:26)
[2018-07-11] MEDS ORDERED: Dexamethasone IV* 4 MG/ML 1 ML (4 MG) ONE (09:34)
[2018-07-11] MEDS ORDERED: Fluorescein 10% INJ* 100 MG/ML AMP ONE (09:44)
[2018-07-11] MEDS ORDERED: Naloxone* 0.4 MG/ML 1 ML VIAL IV PRN (10:17)
[2018-07-11] MEDS ORDERED: Ondansetron INJ* 2 MG/ML VIAL IV PRN (10:17)
[2018-07-11] MEDS ORDERED: Iohexol 180 (CONTRAST) 10 ML SDV IV ONE (10:24)
[2018-07-11] MEDS ORDERED: Ondansetron INJ* 2 MG/ML VIAL ONE (10:36)
[2018-07-11] MEDS: fentaNYL* 50 MCG/ML 2 ML VIAL (100 MCG VIAL) IV PRN ×3 (10:58→11:16)
[2018-07-11] MEDS ORDERED: levETIRAcetam IV* 1,500 MG in NS 100 mL IVPB ONE (11:00)
[2018-07-11] MEDS ORDERED: oxyCODONE/Acetamin 5/325 MG* TAB ONE (11:15)
[2018-07-11] MEDS: oxyCODONE/Acetamin 5/325 MG* TAB PO PRN ×2 (11:17→11:18)
--- NOTE | 2018-07-11 11:22 | RAD ---
INDICATION: Stent insertion COMPARISONS: July 10, 2018 CT TECHNIQUE: Fluoroscopy was provided for a retrograde pyelogram and stent placement. Total fluoroscopy time is: 19 seconds FINDINGS: Contrast is noted within the renal collecting systems bilaterally. Bilateral ureteral stents are noted. IMPRESSION: FLUOROSCOPY WAS PROVIDED FOR A RETROGRADE PYELOGRAM AND STENT PLACEMENT CPT II Codes: G9500
[2018-07-11] MEDS ORDERED: HYDROmorphone INJ* 0.5 MG/0.5 ML SYRINGE ONE (11:27)
[2018-07-11] MEDS: HYDROmorphone INJ* 0.5 MG/0.5 ML SYRINGE IV PRN ×5 (11:29→11:50)
[2018-07-11 12:25] VITALS: BP 108/64
[2018-07-11] MEDS ORDERED: Solifenacin(NF) 5 MG TAB PO ONE (13:00)
--- NOTE | 2018-07-11 13:00 | RAD ---
INDICATION: Bilateral ureteral stent insertion COMPARISON: CT of the abdomen and pelvis dated July 10, 2018 TECHNIQUE: A single AP view of the abdomen and pelvis was acquired. FINDINGS: There is been interval placement of bilateral ureteral stents and anatomic alignment. A punctate density is noted overlying the right renal collecting system. Phleboliths are noted in the pelvis. IMPRESSION:INTERVAL PLACEMENT OF AN ANATOMICALLY ALIGNED BILATERAL URETERAL STENTS.
--- NOTE | 2018-07-11 21:44 | OP ---
CC: Dr. Pedro Luis Chiang * DATE OF OPERATION: 07/11/18 - [facility] DATE OF : 89 SURGEON: Yonatan Mcguire MD ANESTHESIOLOGIST: Sotero Ramirez MD ANESTHESIA: General. PRE-OP DIAGNOSES: 1. Bilateral ureteral calculi. 2. Left hydronephrosis. POST-OP DIAGNOSES: 1. Bilateral ureteral calculi. 2. Left hydronephrosis. OPERATIVE PROCEDURE: 1. Cystoscopy, left retrograde pyelogram, left ureteroscopy, laser lithotripsy , and left stent insertion. 2. Right retrograde, right ureteroscopy, stone extraction, and right stent insertion. INDICATIONS: Nato Godoy is a 32-year-old gentleman, who has had complaints of pain in the urethra for almost 1 month. He has never had any flank pain or gross hematuria and on evaluation in my office was noted to have microscopic hematuria, which prompted a renal sonogram, which revealed the above -mentioned findings. OPERATIVE FINDINGS: 1. Significant edema and inflammatory response noted surrounding left orifice completely obscuring left orifice with calculus impacted at left ureterovesical junction. 2. Mild edema right orifice with small calculus in the right distal ureter. COMPLICATIONS: None. STENT USED: 7-British stent left ureter and 6-British stent right ureter. POSTOPERATIVE CONDITION: Stable. DESCRIPTION OF PROCEDURE: After induction of general anesthesia, the patient was placed in dorsal lithotomy position. Sequential compression devices were in place and functioning. Initial cystoscopy revealed a normal-appearing urethra. The bladder was examined. There was significant edema and inflammation on the left side of the trigone making it initially impossible to visualize the left orifice. There was mild edema and inflammation on the right side. Initial attempts at trying to place a guidewire on the left side were unsuccessful because the orifice could not be visualized. Next, I used a semi- rigid ureteroscope and trying to guess where the orifice should be located, finally was able to find the orifice and to introduce the ureteroscope under direct vision. Just inside the ureterovesical junction, a 3 to 4 mm calculus was impacted. Once the ureteroscope was within the ureter, then I was able to place a guidewire into the proximal collecting system. The ureteroscope was withdrawn and then introduced adjacent to the wire and using a 550 micron Holmium laser, the stone was completely fragmented and all of the sizeable fragments were removed. A 6-British stent was introduced and positioned under fluoroscopy with good proximal and distal positioning obtained. Attention was then directed to the right side. There was only mild edema on the right side and the calculus was also much smaller, probably about 2 mm in size, but it too was impacted at the ureterovesical junction. Using a three- pronged grasper, the stone was engaged and removed. A 6-British stent was introduced and positioned under fluoroscopy with good proximal and distal positioning obtained. The bladder was emptied. The patient tolerated the procedure satisfactorily and was transferred back to the recovery area in stable condition. [id number]/CPS #: [id number] SHEILA
== END 2018-07-11 12:37 | disposition home or self-care (01) ==
LOC: OR 08:15
PROVIDERS: ATTEND Urology
DX: N13.2 Hydronephrosis with renal and ureteral calculous obstruction (principal); K58.9 Irritable bowel syndrome, unspecified; G40.89 Other seizures; Z87.891 Personal history of nicotine dependence
CPT/HCPCS: 74018; 74420; 82365; 88300; A9270-GY; C1876; J0696; J1100; J1170; J2250; J2405; J2704; J3010

== ENCOUNTER 2019-02-02 08:49 | Emergency (ER) | payer BC ==
[2019-02-02 09:02] VITALS: BP 110/62
--- NOTE | 2019-02-02 09:05 | UC ---
Ear Complaint HPI - HPI Summary HPI Summary: 33 y/o male presents to the urgent care c/o body aches, nasal congestion w/ yellowish discharge, mild SANOT for the past weeks. he has been taken OTC medication to alleviate symptoms. However, he developed left ear pain for the past 2 days. Pain is 4/10 associated w/ subjective low grade fever. Pt denies decrease hearing, dizziness, tinnitus, SOB, chest pain, abdominal pain, N/V/D. - History of Current Complaint Chief Complaint: UCGeneralIllness Stated Complaint: EAR PAIN Time Seen by Provider: 02/02/19 09:04 Hx Obtained From: Patient Onset/Duration: Gradual Onset, Lasting Weeks - 1 week, Still Present, Worse Since - 2 days w/ ear pain Severity Initially: Mild Severity Currently: Moderate Pain Intensity: 4 - ear pain Pain Scale Used: 0-10 Numeric Alleviating Factors: OTC Meds Associated Signs/Symptoms: Positive: URI Symptoms - Allergies/Home Medications Allergies/Adverse Reactions: Allergies Allergy/AdvReac Type Severity Reaction Status Date / Time Sulfa (Sulfonamide Allergy Swelling Verified 02/02/19 08:59 Antibiotics) Home Medications: Home Medications Venlafaxine TAB (NF) [Effexor TAB (NF)] 75 mg PO DAILY 02/02/19 [History Confirmed 02/02/19] PMH/Surg Hx/FS Hx/Imm Hx Previously Healthy: Yes Neurological History: Seizures Psychological History: Anxiety, Depression - Surgical History Surgical History: Yes Surgery Procedure, Year, and Place: lipotripsy - Family History Known Family History: Positive: None - Pt denies FMHX Negative: Cardiac Disease, Hypertension, Diabetes - Social History Occupation: Employed Full-time Lives: With Family Alcohol Use: None Substance Use Type: None Smoking Status (MU): Former Smoker Amount Used/How Often: 1/2 pack a day for 8 yrs When Did the Patient Quit Smoking/Using Tobacco: 2012 Review of Systems All Other Systems Reviewed And Are Negative: Yes Constitutional: Positive: Fever, Other - body aches Skin: Positive: Negative Eyes: Positive: Negative ENT: Positive: Sore Throat - mild, Ear Ache - left ear pain, Nasal Discharge - clear, Sinus Congestion Respiratory: Positive: Cough - dry Cardiovascular: Positive: Negative Gastrointestinal: Positive: Negative Genitourinary: Positive: Negative Motor: Positive: Negative Neurovascular: Positive: Negative Musculoskeletal: Positive: Myalgia Neurological: Positive: Headache Psychological: Positive: Negative Is Patient Immunocompromised?: No Physical Exam - Summary Physical Exam Summary: Vital signs: reviewed General: well developed, well nourished male sitting in the examining table w/o any apparent distress Skin: [place], warm and dry, no evidence of atopic dermatitis, psoriasis, seborrhea. HEENT: -Head: atraumatic, non tender; no scalp dermatitis. -Eyes: sclera and conjunctiva clear, PERRLA, EOMI -Ears: no pre- or postauricular lymphadenopathy or erythema; B/L external ear canal clear. Rt TM WNL, LF TM injected w/ erythema and mild purulent discharge. . No perforation. -Nose/Face: erythematous and edematous nasal mucosa with clear rhinorrhea, no frontal or maxillary sinus tender to palpation. -Mouth/Throat: Mucous membrane moist, posterior pharynx w/ mild erythema clear, no erythema or exudates. Neck: supple, FROM, nontender, no lymphadenopathy, no meningismus. Chest: Clear to auscultation, normal breath sounds Abd: soft, Bowel sounds active, Nontender. Back: no spinal or CVAT Neuro: A&O x4, GCS 15, no focal neuro deficits, normal behavior for age. Triage Information Reviewed: Yes Vital Signs: Initial Vital Signs Temp 98.6 F 02/02/19 08:56 Pulse 82 02/02/19 08:56 Resp 16 02/02/19 08:56 BP 110/62 02/02/19 08:56 Pulse Ox 100 02/02/19 08:56 Ear Complaint Course/Dx - Course Course Of Treatment: 33 y/o male presents to the urgent care c/o body aches, nasal congestion w/ yellowish discharge, mild SANTO for the past weeks. he has been taken OTC medication to alleviate symptoms. However, he developed left ear pain for the past 2 days. Pain is 4/10 associated w/ subjective low grade fever. Pt denies decrease hearing, dizziness, tinnitus, SOB, chest pain, abdominal pain, N/V/D. Hx obtained. Pt w/ URI and Left otitis media on examination. Pt Rx Amoxicillin PO. Pt Advised to take Ibuprofen PO to control fever.and pain. if symptoms do not improve or worsen to return to the urgent care or f/u with PCP in 2-3 days for further management. d/C instructions explained. Pt understood and agreed with D/C - Differential Dx/Diagnosis Differential Diagnosis/HQI/PQRI: Cerumen Impaction, Otitis Externa, Otitis Media , Perforated TM, Pharyngitis Provider Diagnosis: Left otitis media, Upper respiratory infection Discharge - Sign-Out/Discharge Documenting (check all that apply): Patient Departure - d/C home All imaging exams completed and their final reports reviewed: No Studies - Discharge Plan Condition: Stable Disposition: HOME Prescriptions: Amoxicillin PO (*) [Amoxicillin 875 MG (*)] 875 mg PO BID #20 tab Patient Education Materials: Ear Infection (ED), Upper Respiratory Infection ( DC) Referrals: Pedro Luis Chiang MD [Primary Care Provider] - 3 Days Additional Instructions: 1- Please take the full course of the antibiotic to avoid resistance. Take yogurt w/ probiotics or culturelle to protect your GI system. 2-Please take ibuprofen PO q6-8hrs prn as instructed after meals to alleviate pain and swelling. Increase fluid intake, eat well, rest and avoid strenuous exercise 3-If symptoms do not improve or worsen please return to the urgent care or f/u with your PCP for further evaluation and treatment. - Billing Disposition and Condition Condition: STABLE Disposition: Home
== END 2019-02-02 09:30 | disposition home or self-care (01) ==
LOC: UCEAST 08:49
DX: H66.92 Otitis media, unspecified, left ear (principal); J06.9 Acute upper respiratory infection, unspecified; F32.9 Major depressive disorder, single episode, unspecified; Z88.2 Allergy status to sulfonamides; Z87.891 Personal history of nicotine dependence; Z79.899 Other long term (current) drug therapy
CPT/HCPCS: 99212; G0463